=== PATIENT | male | born 1985 | race Caucasian/White ===

== ENCOUNTER 2019-05-19 20:08 | Emergency (ER) | payer SELFPAY ==
[~2019-05-19] VITALS: Ht 172.7 cm; Wt 77.3 kg
[2019-05-19 20:22] VITALS: Ht 172.7 cm; Wt 77.3 kg
[2019-05-19] MEDS ORDERED: HYDROCODON-ACE1 EA10 PO (21:57)
[2019-05-19 23:40] VITALS: BP 125/81
[2019-06-22 09:12] VITALS: Ht 172.7 cm; Wt 77.3 kg
== END 2019-05-19 23:40 | disposition home or self-care (01) ==
LOC: D.ER 20:08
DX: M25.572 Pain in left ankle and joints of left foot (principal); S92.002A Unspecified fracture of left calcaneus, initial encounter for closed fracture; X58.XXXA Exposure to other specified factors, initial encounter; Y93.89 Activity, other specified; Y92.89 Other specified places as the place of occurrence of the external cause

== ENCOUNTER 2019-05-25 16:49 | Emergency (ER) | payer MEDICAID ==
[~2019-05-25] VITALS: Ht 172.7 cm; Wt 77.3 kg
[~2019-05-25 16:49] MED LIST: HYDROCODON-ACE1 EA10 PO
[2019-05-25 16:55] VITALS: Ht 172.7 cm; Wt 77.3 kg
[2019-05-25] MEDS ORDERED: HYDROCODON-ACE1 EA10 PO (18:03)
[2019-05-25 18:26] VITALS: BP 121/81
== END 2019-05-25 18:15 | disposition home or self-care (01) ==
LOC: D.ER 16:49
DX: S92.002A Unspecified fracture of left calcaneus, initial encounter for closed fracture (principal); X58.XXXA Exposure to other specified factors, initial encounter

== ENCOUNTER 2019-06-01 07:23 | Emergency (ER) | payer SELFPAY ==
[~2019-06-01] VITALS: Ht 172.7 cm; Wt 77.3 kg
[2019-06-01 07:26] VITALS: Ht 172.7 cm; Wt 77.3 kg
[2019-06-01] MEDS ORDERED: HYDROCODONE-A1 UDTA2 PO (07:46)
[2019-06-01 08:34] VITALS: BP 120/73
== END 2019-06-01 08:35 | disposition home or self-care (01) ==
LOC: D.ER 07:23
DX: S92.002D Unspecified fracture of left calcaneus, subsequent encounter for fracture with routine healing (principal); X58.XXXD Exposure to other specified factors, subsequent encounter

== ENCOUNTER 2019-06-22 08:36 | Day surgery (SDC) | payer MEDICAID ==
[~2019-06-22] VITALS: Ht 172.7 cm; Wt 77.1 kg
[~2019-06-22 08:36] MED LIST changes: +HYDROCODONE-A1 UDTA2 PO
[2019-06-22 09:12] VITALS: BP 126/82; Ht 172.7 cm; Wt 77.1 kg
--- NOTE | 2019-06-22 12:02 | NUR ---
PILLOW BETWEEN ARMS
[2019-06-22] MEDS ORDERED: DILAUDID4 MG PO (12:37)
--- NOTE | 2019-06-22 13:46 | NUR ---
APPLIED ICE AND ELEVATED LEFT FOOT ORDERED POST OP. PT VOICED RELIEF IN PAIN AFTER PAIN MEDICATION GIVEN. NO FURTHER NEEDS AT THIS TIME. PT RESTING QUIETLY. WILL CTM.
--- NOTE | 2019-06-22 14:55 | NUR ---
DC INSTRUCTIONS GIVEN TO PT. STATES UNDERSTANDING. DC'D IV CATH FULLY INTACT.
--- NOTE | 2019-06-22 15:08 | NUR ---
PT LEFT UNIT VIA WC AT 1505
--- NOTE | 2019-06-25 14:19 | OP ---
PATIENT NAME: PAOLO MARTINEZ MEDICAL RECORD: [id number] LOCATION:[facility] ADMISSION DATE: SURGEON: KATHLEEN MÉNDEZ MD DATE OF OPERATION: 06/22/2019 PREOPERATIVE DIAGNOSIS: Left calcaneus fracture. POSTOPERATIVE DIAGNOSIS: Left calcaneus fracture. PROCEDURE: Open reduction internal fixation of left calcaneus fracture. SURGEON: Kathleen Méndez MD. OPEN HEARTH WORKER: Светлана Smiley. INTRAOPERATIVE COMPLICATIONS: None. SUMMARY OF PATHOLOGIC FINDINGS: The patient had the usual deformity that included varus shortening as well as elevation. This required substantial manipulation to reapproximate the patient's valgus, calcaneal length as well as to bring the os calcis down. This was done with a combination of osteotomes as well as a Schanz pin. IMPLANTS USED: Mandy lateral calcaneal plate, combination of both locking and nonlocking screws. OPERATIVE SUMMARY IN DETAIL: After obtaining the appropriate preoperative orthopedic surgery consent as well as anesthetic consultation, evaluation and clearance, the patient was brought to the operating room and placed on the operating table in supine position. After adequate general laryngeal mask airway was administered, tourniquet was placed about the proximal aspect of the patient's left lower extremity. Left lower extremity was then prepped and draped in routine sterile fashion. The patient was placed in a right lateral decubitus position with the left lateral aspect of the foot. The leg was elevated and exsanguinated, tourniquet was inflated to 350 mmHg. An L-shaped incision was taken down to the level of the calcaneus. Care was taken to avoid the sural nerve and the flap. This was elevated subperiosteally. The patient's wall laterally had essentially blown out. At this point, a combination of Schanz pins, osteotome as well as a mallet were utilized to reform the calcaneus back into its normal valgus position and bring it down and bring it out. This resulted in better elongation, better valgus position. The subtalar joint was elevated back to its normal position. At this point, the plate was applied with a combination of locking and nonlocking screws under fluoroscopic guidance. Final radiographs were taken and submitted for radiologist review. At this point, the wound was carefully irrigated and closed with a combination of 2-0 Vicryl as well as 3-0 Prolene in a mattress style fashion, keeping the skin flap in mind during the closure. Sterile dressings were applied. Posterior L&U splint was applied. Tourniquet was deflated. The patient was awakened and taken to recovery room in stable condition. All final needle and sponge counts were correct. TRANSINT:[id number] Voice Confirmation ID: [id number] DOCUMENT ID: [id number] OPERATIVE REPORT [id number] PAOLO MARTINEZ MD, KATHLEEN LUX at 1419 CC: [id number] DICTATION DATE: 06/23/19916 [employer] OPERATOR: 06/23/19 1144 [facility] 06/22/19 [id number] [place] [address]
== END 2019-06-22 15:05 | disposition home or self-care (01) ==
LOC: D.OPS 08:36 → D.PAN 13:45 → D.OPS 13:45
PROVIDERS: ATTEND Orthopaedic Surgery
DX: S92.002A Unspecified fracture of left calcaneus, initial encounter for closed fracture (principal); Z01.812 Encounter for preprocedural laboratory examination